=== PATIENT | male | born 1940 | race Hispanic/Latino ===

== ENCOUNTER → 2018-02-11 08:29 | Outpatient (CLI) | payer MEDICARE, OTHER, SELFPAY ==
--- NOTE | 2018-02-11 | DI.ECHO.S_ITS ---
[facility] +---------+ : : [address] : : : : [id number] : : : : Phone: [phone]---------+ Echocardiogram Report + + :Name: BRANDI REYES Study Date: 02/11/2018 Height: 67 in : :[facility] Weight: 207 lb : : Gender: Male BSA: 2.1 m2 : :: 1940 Age: 77 yrs BP: 136/84 mmHg: :Reason For Study: SOB : :Ordering Physician: Maxine : :Jose Antonio Performed By: Ju Quan : + + Interpretation Summary 1. Normal left ventricular size with mildly increased wall thickness and normal systolic function with an estimated EF of 60-65% 2. Normal right ventricular size and systolic function. The estimated RVSP is 16 mm Hg plus the CVP 3. No evidence for significant valvular pathology. Aortic valve findings are stable compared to the previous study. No appreciable change from previous study Procedure: A two-dimensional transthoracic echocardiogram with color flow and Doppler was performed. The study quality was technically adequate. Comparison is made with the echocardiogram of 03/23/2016. The subcostal views were not obtained due to lack of acoustic window. The patient was in normal sinus rhythm during the exam. Left Ventricle: The left ventricular cavity is small. There is mild concentric left ventricular hypertrophy. The ejection fraction is estimated to be 60-65%. There are no obvious focal wall motion abnormalities noted but poor endocardial definition reduces the sensitivity for the detection of such. Diastolic function could not be accurately assessed due to contradictory data. Right Ventricle: The right ventricle is normal in size and function. Atria: Both atria are normal in size. There is no Doppler evidence for an interatrial shunt. Mitral Valve: There is mild to moderate mitral annular calcification. The mitral valve leaflets are mildly calcified. There is trace mitral regurgitation. Aortic Valve: The aortic valve is not well visualized. The aortic valve is mildly calcified. The peak aortic velocity is 2.1 m/sec. The peak aortic velocity on the previous exam was 2.4 m/sec. The aortic valve mean gradient is 10.7 mmHg. There is no hemodynamically significant valvular aortic stenosis. There is trace aortic regurgitation. Tricuspid Valve: The tricuspid valve leaflets are thin and pliable. There is a trace or physiologic amount of tricuspid regurgitation. Right ventricular systolic pressure is estimated to be 16 mmHg plus the clinically estimated CVP which cannot be estimated on this exam. Pulmonic Valve: The pulmonic valve is not well visualized. Great Vessels: The aortic root is normal size. The ascending aorta is normal in size. The aortic arch is normal in size. The inferior vena cava was not visualized. Pericardium/ Pleura There is no pericardial effusion. MMode/2D Measurements & Calculations LVIDd: 3.1 cm LVOT diam: 2.2 cm LVIDs: 1.9 cm Ao root diam: 2.9 cm FS: 39.0 % Aortic Jxn: 2.3 cm EPSS: 1.6 cm asc Aorta Diam: 2.9 cm IVSd: 1.1 cm Ao Arch Diam (Prox Trans): 2.7 cm LVPWd: 1.3 cm LV ramirez. diameter/BSA (cm/m^2): 1.5 LV sys. diameter/BSA (cm/m^2): 0.94 LA A2 area: 15.4 cm2 RA long axis: 4.0 cm LA A4 area: 17.2 cm2 RA area: 8.9 cm2 LA length (vol): 4.9 cm RA vol: 17.0 ml LA vol: 46.1 ml RA : 8.3 ml/m2 LA vol index: 22.5 ml/m2 RVD1 (basal): 2.7 cm TAPSE: 1.5 cm Doppler Measurements & Calculations Ao V2 max: 211.3 cm/sec LVOT Max Amador: 128.4 cm/sec Ao V2 mean: 159.3 cm/sec LV V1 max P.6 mmHg Ao max P.9 mmHg LV V1 VTI: 24.4 cm Ao mean P.7 mmHg LAUREN(I,D): 2.2 cm2 Ao V2 VTI: 43.6 cm LAUREN(V,D): 2.3 cm2 sev ratio: 0.56 LAUREN indexed to BSA (cm^2/m^2): 1.1 MV E max amador: 85.9 cm/sec TR max amador: 200.1 cm/sec MV A max amador: 108.1 cm/sec TR max P.0 mmHg MV E/A: 0.79 PA V2 max: 104.0 cm/sec Med Peak E' Amador: 5.6 cm/sec PA V2 mean: 73.4 cm/sec E/E' med: 15.4 PA mean P.3 mmHg Lat Peak E' Amaodr: 5.8 cm/sec PA Accel Time: 0.08 sec E/E' lat: 14.8 E/e' average: 15.1 MV dec time: 0.24 sec MV P1/2t: 71.3 msec MV 2t max amador: 86.0 cm/sec MVA(2t): 3.1 cm2 Reading Physician:ARMANDO
== END ==
PROVIDERS: Visit Provider Internal Medicine
DX: I08.0 Rheumatic disorders of both mitral and aortic valves (principal); R06.02 Shortness of breath
CPT/HCPCS: 93306

== ENCOUNTER → 2018-09-25 13:52 | Outpatient (CLI) | payer MEDICARE, OTHER, SELFPAY ==
--- NOTE | 2018-09-25 | DI.RAD.S_ITS ---
PROCEDURE: XR WRIST LT MIN 3V INDICATIONS: Pain in left wrist TECHNIQUE: 4 views of the wrist were acquired. COMPARISON: None. FINDINGS: Bones: No fractures or dislocations. No suspicious bony lesions. First CMC and triscaphe joint degeneration Soft tissues: No suspicious soft tissue calcifications. IMPRESSION: First CMC and triscaphe joint degeneration Dictated by: Brian Paez M.D. on 09/25/2018 at 15:26 Approved by: Brian Paez M.D. on 09/25/2018 at 15:28
== END ==
PROVIDERS: PCP Internal Medicine; Visit Provider Internal Medicine
DX: M25.532 Pain in left wrist (principal); M18.12 Unilateral primary osteoarthritis of first carpometacarpal joint, left hand; M19.032 Primary osteoarthritis, left wrist
CPT/HCPCS: 73110

== ENCOUNTER → 2019-04-28 09:03 | Outpatient (CLI) | payer MEDICARE, OTHER, SELFPAY ==
[2019-04-28 11:01] LABS: Add Manual Diff / Slide Review NO; Basophils Absolute Auto 100 /uL (0-100); Eosinophils Absolute Auto 1100 /uL (0-450); Eosinophils Percent Auto 9.2 % (2-4); Hematocrit 40.1 % (41-53); Hemoglobin 13.1 g/dL (13.5-17.5); Lymphocytes Absolute Auto 3100 /uL (1100-4500); Lymphocytes Percent Auto 26.1 % (25-40); Mean Corpuscular HGB Conc 32.6 % (30-36); Mean Corpuscular Volume 85.9 fL (80-100); Monocytes Absolute Auto 1200 /uL (0-900); Monocytes Percent Auto 9.8 % (3-14); Neutrophils Absolute Auto 6400 /uL (1500-7000); Neutrophils Percent Auto 53.9 % (50-75); Platelet Count 310 X10^3/uL (150-400); Red Blood Cell Count 4.67 X10^6/uL (4.5-5.9); Red Cell Distribution Width 14.6 % (11.6-14.8); White Blood Cell Count 11.8 X10^3/uL (4.5-11.0)
[2019-04-28 11:08] LABS: Hemoglobin A1C% w Est Avg Glu 7.3 % (4.0-6.0)
[2019-04-28 11:22] LABS: Creatinine Urine Random 124.5 mg/dL
[2019-04-28 11:33] LABS: Alanine Aminotransferase 33 IU/L (<50); Albumin 4.3 g/dL (3.5-5.0); Albumin Globulin Ratio 1.4 (1.0-2.8); Alkaline Phosphatase 72 U/L (38-126); Aspartate Aminotransferase 32 IU/L (17-59); BUN Creatinine Ratio 18.9 (6-22); Bilirubin Total 0.8 mg/dL (0.2-1.3); Blood Urea Nitrogen 17 mg/dL (9-20); Calcium 9.2 mg/dL (8.4-10.2); Carbon Dioxide 29 mmol/L (22-32); Chloride 102 mmol/L (98-107); Cholesterol 125 mg/dL (140-199); Estimated Glomerular Filt Rate > 60.0 mL/min (>60); Globulin 3.1 g/dL (1.7-4.1); Glucose 133 mg/dL (80-110); HDL Cholesterol 39 mg/dL (40-60); HEMOLYSIS < 15 (0-50); LDL Cholesterol Calculated 60 mg/dL (<100); Potassium 4.3 mmol/L (3.4-5.1); Sodium 138 mmol/L (137-145); Total Protein 7.4 g/dL (6.3-8.2); Triglycerides 130 mg/dL (35-150)
[2019-04-28 12:06] LABS: TSH w/ Reflex to FT4 2.09 uIU/mL (0.47-4.68)
[2019-04-28 17:36] LABS: Microalbumi Creatinin Ratio Ur 13.6 ug/mg CR (<30); Microalbumin Urine Random 1.7 mg/dL (0-1.6)
== END ==
PROVIDERS: PCP Internal Medicine; Visit Provider Internal Medicine
DX: R53.83 Other fatigue (principal); E11.9 Type 2 diabetes mellitus without complications; E78.5 Hyperlipidemia, unspecified; I10 Essential (primary) hypertension
CPT/HCPCS: 36415; 80053; 80061; 82043; 82570; 83036; 84443; 85025

== ENCOUNTER → 2019-07-03 11:00 | Outpatient (CLI) | payer MEDICARE, OTHER, SELFPAY ==
[2019-07-03 12:33] LABS: Add Manual Diff / Slide Review NO; Basophils Absolute Auto 100 /uL (0-100); Basophils Percent Auto 1.1 % (0-2); Eosinophils Absolute Auto 900 /uL (0-450); Eosinophils Percent Auto 8.2 % (2-4); Hematocrit 40.9 % (41-53); Hemoglobin 13.3 g/dL (13.5-17.5); Hemoglobin A1C% w Est Avg Glu 7.7 % (4.0-6.0); Lymphocytes Absolute Auto 3300 /uL (1100-4500); Lymphocytes Percent Auto 31.3 % (25-40); Mean Corpuscular HGB Conc 32.6 % (30-36); Mean Corpuscular Hemoglobin 28.4 PG (26-34); Mean Corpuscular Volume 86.9 fL (80-100); Monocytes Absolute Auto 1000 /uL (0-900); Monocytes Percent Auto 9.4 % (3-14); Neutrophils Absolute Auto 5300 /uL (1500-7000); Platelet Count 319 X10^3/uL (150-400); Red Cell Distribution Width 14.4 % (11.6-14.8); White Blood Cell Count 10.6 X10^3/uL (4.5-11.0)
[2019-07-03 13:07] LABS: Iron 129 ug/dL (49-181)
[2019-07-03 13:44] LABS: Ferritin 60.2 ng/mL (17.9-464)
[2019-07-03 15:43] LABS: NT-proBNP (BNP-Adult 18+) 48 pg/mL (<450)
[2019-07-07 15:56] LABS: C Peptide 3.02 ng/mL (0.80-3.85)
== END ==
PROVIDERS: PCP Internal Medicine; Referring Provider Internal Medicine; Visit Provider Internal Medicine
DX: E11.9 Type 2 diabetes mellitus without complications (principal); R06.02 Shortness of breath; I10 Essential (primary) hypertension; R06.00 Dyspnea, unspecified
CPT/HCPCS: 36415; 82728; 83036; 83540; 83880; 84681; 85025